=== PATIENT | male | born 1995 | race American Indian/Alaskan Native ===

== ENCOUNTER 2017-07-12 17:26 | Emergency (ER) | payer OTHER ==
[2017-07-12 17:47] VITALS: BP 117/73
[2017-07-12 18:36] LABS: Basophils % (Auto) 1.5 % (0.0-1.8); Eosinophils % (Auto) 3.7 % (0.0-4.3); Hemoglobin 14.8 gm/dl (11.8-15.2); Mean Corpuscular HGB Conc 33 % (32-34); Mean Corpuscular Hemoglobin 27 pg (28-32); Mean Corpuscular Volume 83 fl (84-94); Platelet Count 246 K/mm3 (140-440); Red Blood Count 5.45 M/mm3 (3.65-5.03); White Blood Count 2.9 K/mm3 (4.5-11.0)
[2017-07-12 18:50] LABS: Anion Gap 16 mmol/L; BUN/Creatinine Ratio 14; Blood Urea Nitrogen 14 mg/dL (9-20); Calcium 9.2 mg/dL (8.4-10.2); Carbon Dioxide 30 mmol/L (22-30); Chloride 100.4 mmol/L (98-107); Glucose 79 mg/dL (75-100); Potassium 4.6 mmol/L (3.6-5.0); Sodium 142 mmol/L (137-145)
[2017-07-12 21:03] LABS: Urine Drugs of Abuse Note Disclamer
[2017-07-12 21:18] LABS: Bilirubin,Urine NEG (Negative); Blood,Urine NEG (Negative); Ketones,Urine NEG (Negative); Leukocyte Esterase,Urine NEG (Negative); Mucus,Urine FEW /HPF; Nitrite,Urine NEG (Negative); Urobilinogen,Urine < 2.0 mg/dL (<2.0)
--- NOTE | 2017-07-12 23:33 | Emergency Department Report ---
HPI - General Chief Complaint: Psych Time Seen by Provider: 07/12/17 20:25 - HPI HPI: The patient is a 22-year-old male presents for evaluation of mental health. The patient reports 2-3 days of constant severe sadness and depression, improved with rest, and associated with transient thoughts of hopelessness. The patient denies fever, headache, unexplained weight loss or weight gain, heat or cold intolerance, skin, hair, or nail changes, neuro deficits, recent suicidal ideations, homicidal ideations, or auditory or visual hallucinations. ED Past Medical Hx - Past Medical History Previous Medical History?: No - Surgical History Past Surgical History?: No - Social History Smoking Status: Never Smoker Substance Use Type: None - Medications Home Medications: Home Medications Medication Instructions Recorded Confirmed Last Taken Type No Known Home Medications [No 07/12/17 07/12/17 Unknown History Reported Home Medications] ED Review of Systems ROS: Stated complaint: MENTAL HEALTH EVALATION Other details as noted in HPI Constitutional: denies: fever ENT: denies: throat or neck pain Respiratory: denies: cough, shortness of breath Cardiovascular: denies: chest pain Endocrine: denies unexplained weight loss or gain Gastrointestinal: denies: abdominal pain, nausea Genitourinary: denies: dysuria Musculoskeletal: denies: leg swelling Skin: denies: rash Neurological: denies: headache Hematological/Lymphatic: denies: easy bleeding or easy bruising Psych: reports sadness denies sadness or hopelessness Physical Exam - Physical Exam Vital Signs: Vital Signs 07/12/17 17:39 Temperature 98.7 F Pulse Rate 65 Respiratory 16 Rate Blood Pressure 117/73 O2 Sat by Pulse 100 Oximetry Physical Exam: General: well-nourished, well-developed, no acute distress Head: Normocephalic, atraumatic Eyes: normal sclera ENT: Mucous membranes are pink and moist Neck: trachea midline, neck supple, No neck stiffness, no cervical adenopathy Respiratory: Breath sounds equal bilaterally, no wheezing, rales, or rhonchi Cardio: S1 and S2 present, no murmurs, rubs, gallops, capillary refill is brisk Abdomen: Normoactive bowel sounds, soft abdomen, no rigidity, no guarding or rebound tenderness Musc: No pitting edema Skin: No rash Neuro: no facial drooping, normal speech Psych: Flat affect, depressed mood, normal insight, no hallucinations ED Course Vital Signs 07/12/17 17:39 Temperature 98.7 F Pulse Rate 65 Respiratory 16 Rate Blood Pressure 117/73 O2 Sat by Pulse 100 Oximetry ED Medical Decision Making - Lab Data Result diagrams: 07/12/17 17:52 07/12/17 17:52 - Medical Decision Making The patient was seen and examined by myself. The patient is placed on a monitoring specialist and continuous pulse ox. On initial evaluation, the patient was found to be in no distress. Labs are obtained. Lab results are grossly unremarkable. The patient is medically clear. Mental health is consulted. Mental health evaluates the patient and agrees that the patient negative for findings concerning a risk of harm to self or others. The patient is discharged in stable condition in the care of his mother. Critical care attestation.: If time is entered above; I have spent that time in minutes in the direct care of this critically ill patient, excluding procedure time. ED Disposition Clinical Impression: Behavior concern in adult, Mood disorder Disposition: DC-01 TO HOME OR SELFCARE Is pt being admited?: No Does the pt Need Aspirin: No Condition: Stable Instructions: Mood Disorders (ED), Medical Clearance for Psychiatric Care (ED) Referrals: [facility] [Outside] - 3-5 Days Time of Disposition: 23:29
== END 2017-07-13 02:05 | disposition home or self-care (01) ==
LOC: ED 17:26 → EEVIPCON 17:26 → ED 07-13 02:05
DX: F39 Unspecified mood [affective] disorder (principal); F91.9 Conduct disorder, unspecified
CPT/HCPCS: 36415; 80048; 80307; 81001; 85025; 99284; G0480; 80320